=== PATIENT | male | born 1975 | race Hispanic/Latino ===

== ENCOUNTER 2023-04-17 19:19 | Emergency (ER) | payer OTHER, SELFPAY ==
[2023-04-17 19:24] VITALS: BP 138/88; PULSE 67; RESP 18; TEMP 36.6; O2SAT 99; BMI 30.8
--- NOTE | 2023-04-17 20:28 | ED_ITS ---
HPI - General Adult General Chief complaint: Dental/Oral Stated complaint: post root brandie pos infection Time Seen by Provider: 04/17/23 20:12 Source: patient Mode of arrival: Ambulatory Limitations: no limitations History of Present Illness HPI narrative: Patient is a 47-year-old male. Within the past 2-3 days underwent a ?emergent? root canal to a molar in his right upper jaw. Is not currently on any antibiot ics. Has been trying Tylenol and ibuprofen at home. Since the procedure has had worsening pain. He does have pain medication at home that he was prescribed the onset of the issues he was having with the tooth that led to the root canal but he has not taken these medications. He stated that he did talk with the individuals who did the root canal. He stated that he was told that pain is expected. He does not have a follow-up scheduled. Related Data Previous Rx's Medication Instructions Recorded penicillin V potassium 500 mg 500 mg PO QID 7 days #28 tabs 04/17/23 tablet Allergies Allergy/AdvReac Type Severity Reaction Status Date / Time No Known Drug Allergies Allergy Verified 04/17/23 19:28 Review of Systems Constitutional Constitutional: Reports system reviewed and no additional complaints, except as documented ENT Ears, Nose, Mouth, and Throat: Reports system reviewed and no additional complaints, except as documented Respiratory Respiratory: Reports system reviewed and no additional complaints, except as documented Gastrointestinal Gastrointestinal: Reports system reviewed and no additional complaints, except as documented Patient History Social History Smoking Status: Never smoker Smoking Status: Never smoker alcohol intake frequency: 0-2 drinks per day Substance Use Type: does not use Exam Initial Vital Signs Initial Vital Signs: Vital Signs Temperature 97.8 F 04/17/23 19:24 Pulse Rate 67 04/17/23 19:24 Respiratory Rate 18 04/17/23 19:24 Blood Pressure 138/88 04/17/23 19:24 Pulse Oximetry 99 04/17/23 19:24 Oxygen Delivery Method Room Air 04/17/23 19:24 [facility] Head: normal to inspection and normocephalic Face and sinus: normal facial exam, no crepitus, no ecchymosis, no fluctuance and other (Discomfort with palpation of the right side of jaw) Mouth: oral mucosae normal, tongue normal and moist mucous membranes Teeth and gingiva: dentition normal and gingiva normal Resp Effort & Inspection: normal respiratory effort Skin General: no rashes or lesions noted Course Orders Ordered: Discontinued Medications Penicillin V Potassium (Penicillin Vk 250 Mg Tablet) 500 mg PO NOW ONE Stop: 04/17/23 20:29 Last Admin: 04/17/23 20:33 Dose: 500 mg Documented By: JES Vital Signs Vital signs: Vital Signs - 8 hr 04/17/23 19:24 04/17/23 20:46 Temperature 97.8 F 98.2 F Pulse Rate 67 76 Respiratory Rate 18 18 Blood Pressure 138/88 172/90 H Pulse Oximetry 99 97 Oxygen Delivery Method Room Air Room Air Medical Decision Making MDM Narrative Medical decision making narrative: No drainable abscess noted intraoral. Does have some erythema around the upper posterior molars. Is fairly tender with palpation of the right maxillary region externally. No fluctuance noted. Given the discomfort that he is having we w ill start him on antibiotics to treat a presumed infection. There was no indication for radiologic studies. Advised that he contact the provider who did the procedure about a follow-up. He can continue to take Tylenol and ibuprofen. He has pain medication at home and he was advised that if he felt like he needed this he could take this medication for the discomfort. No respiratory distress. No indication for admission to the hospital. He was given return precautions and follow-up instructions. Discharge Plan Departure Patient Disposition: Home Clinical Impression: Dental infection Instructions: DI for Dental Pain Activity Restrictions/Additional Instructions: It is important that you follow all of the postoperative instructions given to you by the individual who did the root canal. We are going to start you on antibiotics. I recommend that you contact the dentist who did your procedure tomorrow for a follow-up as you may need further evaluation. Return to the emergency department for new symptoms Prescriptions: New penicillin V potassium 500 mg tablet 500 mg PO QID 7 Days Qty: 28 0RF Referrals: Miscellaneous,DoctorMD [Primary Care Provider] - Stand Alone Forms: Patient Portal/API
[2023-04-17] MEDS: PENICILLIN VK 250 MG TABLET 500 MG PO (20:33)
[2023-04-17 20:46] VITALS: BP 172/90; PULSE 76; RESP 18; TEMP 36.8; O2SAT 97
== END 2023-04-17 20:49 | disposition home or self-care (01) ==
PROVIDERS: Emergency Provider Emergency Medicine
DX: K04.7 Periapical abscess without sinus (principal)
CPT/HCPCS: 99283